=== PATIENT | female | born 1950 | race Caucasian/White ===

== ENCOUNTER 2017-11-04 16:16 | Emergency (ER) | payer OTHER, MEDICARE ==
[~2017-11-04] VITALS: Ht 167.6 cm; Wt 77.1 kg
[2017-11-04 16:25] VITALS: BP_SYST 145
[2017-11-04] MEDS ORDERED: KETOROLAC TROMETHAMINE 60 MG/2 ML VIAL IM ONE (17:30)
[2017-11-04 18:35] VITALS: BP_SYST 145
== END 2017-11-04 18:35 | disposition home or self-care (01) ==
LOC: SED 16:16
DX: M25.562 Pain in left knee (principal); J45.909 Unspecified asthma, uncomplicated; I10 Essential (primary) hypertension; Z90.89 Acquired absence of other organs; Z90.710 Acquired absence of both cervix and uterus; W19.XXXA Unspecified fall, initial encounter; Y93.89 Activity, other specified; Y92.89 Other specified places as the place of occurrence of the external cause; Y99.8 Other external cause status
CPT/HCPCS: 29505; 73564; 96372; 99284; J1885

== ENCOUNTER 2018-07-05 07:40 | Day surgery (SDC) | payer OTHER, MEDICARE ==
[~2018-07-05] VITALS: Ht 167.6 cm; Wt 77.1 kg
[2018-07-05] MEDS ORDERED: SIMETHICONE 40 MG/0.6 ML ML ONE (08:20)
[2018-07-05] MEDS ORDERED: MIDAZOLAM HCL 5 MG/5 ML VIAL ONE (08:21)
[2018-07-05] MEDS: MIDAZOLAM HCL 5 MG/5 ML VIAL ONE ×5 (10:13→10:29)
[2018-07-05] MEDS: MEPERIDINE HCL/PF 100 MG/ML AMP ONE ×2 (10:13→10:17)
[2018-07-05 14:17] VITALS: BP_SYST 129
== END 2018-07-05 11:55 | disposition home or self-care (01) ==
LOC: SDS 07:40
PROVIDERS: ATTEND Internal Medicine Gastroenterology
DX: D12.4 Benign neoplasm of descending colon (principal); K57.30 Diverticulosis of large intestine without perforation or abscess without bleeding; K64.8 Other hemorrhoids; J45.909 Unspecified asthma, uncomplicated; E78.5 Hyperlipidemia, unspecified; I10 Essential (primary) hypertension; K21.9 Gastro-esophageal reflux disease without esophagitis; Z86.010 Personal history of colon polyps; Z79.899 Other long term (current) drug therapy
CPT/HCPCS: 45380; 88305; J2175; J2250

== ENCOUNTER 2019-11-03 12:32 | Emergency (ER) | payer OTHER, MEDICARE ==
[~2019-11-03] VITALS: Ht 167.6 cm; Wt 78.5 kg
[2019-11-03 12:40] VITALS: BP_SYST 143
[2019-11-03] MEDS ORDERED: NACL 0.9% 1,000 ML IV ONE (13:05)
[2019-11-03] MEDS ORDERED: FAMOTIDINE PF 20 MG/2 ML VIAL IVP ONE (13:15)
[2019-11-03] MEDS ORDERED: methylPREDNISolone SOD SUCC/PF 62.5 MG/ML VIAL IVP ONE (13:15)
[2019-11-03] MEDS ORDERED: ACETAMINOPHEN 500 MG TABLET PO ONE (13:15)
[2019-11-03] MEDS ORDERED: DIPHENHYDRAMINE INJ 50 MG/ML VIAL IVP ONE (13:15)
[2019-11-03] MEDS ORDERED: LOSA25TA18 PO (13:47)
[2019-11-03 13:56] LABS: BASOPHILS % (AUTO) 0.7 % (0.0-2.0); EOSINOPHILS # (AUTO) 0.1 K/uL (0.0-0.4); EOSINOPHILS % (AUTO) 1.5 % (0.0-4.0); HEMATOCRIT 44.9 % (36-48); HEMOGLOBIN 15.2 g/dL (12.0-16.0); LYMPHOCYTES # (AUTO) 1.9 K/uL (1.0-5.5); LYMPHOCYTES % (AUTO) 25.7 % (20.5-51.5); MEAN CORPUSCULAR HEMOGLOBIN 32 pg (27-31); MEAN CORPUSCULAR HGB CONC 34 % (32-36); MEAN CORPUSCULAR VOLUME 93 fL (79.0-98.0); MONOCYTES # (AUTO) 0.4 K/uL (0.0-1.0); NEUTROPHILS # (AUTO) 4.9 K/uL (1.8-7.7); NEUTROPHILS % (AUTO) 67.1 % (40.0-70.0); PLATELET COUNT (AUTO) 298 K/uL (130-430); RED BLOOD CELL COUNT(AUTO) 4.81 MIL/uL (4.2-6.2); RED CELL DISTRIBUTION WIDTH 13.3 % (9.0-15.0); WHITE BLOOD COUNT (AUTO) 7.3 K/uL (4.8-10.8)
[2019-11-03 14:08] LABS: ANION GAP 10 (5-15); CALCIUM 9.4 mg/dL (8.4-11.0); CHLORIDE 103 mmol/L (98-107); CREATININE 0.66 mg/dL (0.55-1.30); GLUCOSE 104 mg/dL (70-99); POTASSIUM 3.8 mmol/L (3.5-5.1); SODIUM SERUM 138 mmol/L (136-145); UREA NITROGEN, BLOOD 11 mg/dL (8-21)
[2019-11-03 14:09] LABS: INR 0.9 (0.8-1.2); PROTHROMBIN TIME 9.4 SECS (9.5-12.5)
[2019-11-03 14:13] LABS: ALANINE AMINOTRANSFERASE 25 U/L (12-78); ALBUMIN 3.6 g/dL (3.4-4.8); AMYLASE 76 U/L (0-100); ASPARTATE AMINOTRANSFERASE 14 U/L (10-37); LIPASE 123 U/L (73-393); TOTAL BILIRUBIN 0.5 mg/dL (0.0-1.0)
[2019-11-03 14:23] LABS: BILIRUBIN,URINE NEGATIVE (NEGATIVE); BLOOD, URINE NEGATIVE (NEGATIVE); CLARITY/URINE CLEAR (CLEAR); COLOR,URINE YELLOW (YELLOW); GLUCOSE,URINE NEGATIVE (NEGATIVE); KETONES,URINE NEGATIVE (NEGATIVE); LEUKOCYTE ESTERASE ,URINE NEGATIVE (NEGATIVE); NITRITE, URINE NEGATIVE (NEGATIVE); PH,URINE 5.5 (5.0-8.0); PROTEIN URINE NEGATIVE (NEGATIVE); UROBILINOGEN,URINE 0.2 (0.2-1.0)
[2019-11-03 15:10] VITALS: BP_SYST 124
== END 2019-11-03 15:10 | disposition home or self-care (01) ==
LOC: SED 12:32
DX: T78.40XA Allergy, unspecified, initial encounter (principal); J45.909 Unspecified asthma, uncomplicated; I10 Essential (primary) hypertension; Z90.710 Acquired absence of both cervix and uterus; X58.XXXA Exposure to other specified factors, initial encounter
CPT/HCPCS: 36415; 71045; 80053; 81003; 82150; 83605; 83690; 85025; 85610; 85730; 86710; 87040; 96374; 96375; 99284; J1200; J2930; J3490; J7030

== ENCOUNTER 2019-11-04 08:05 | Emergency (ER) | payer OTHER, MEDICARE ==
[~2019-11-04] VITALS: Ht 167.6 cm; Wt 70.3 kg
[~2019-11-04 08:05] MED LIST: LOSA25TA18 PO
[2019-11-04 08:27] VITALS: BP_SYST 121
[2019-11-04] MEDS ORDERED: MAG HYDROX/AL HYDROX/SIMETH 30 ML, DICYCLOMINE HCL 20 MG, LIDOCAINE VISCOUS 2% 15ML (PO... PO ONE ×3 (09:15)
[2019-11-04 09:43] VITALS: BP_SYST 121
== END 2019-11-04 09:44 | disposition home or self-care (01) ==
LOC: SED 08:05
DX: L50.9 Urticaria, unspecified (principal); J45.909 Unspecified asthma, uncomplicated; I10 Essential (primary) hypertension
CPT/HCPCS: 93005; 99283; J2001

== ENCOUNTER 2021-08-09 00:56 | Emergency (ER) | payer OTHER, MEDICARE ==
[~2021-08-09] VITALS: Ht 165.1 cm; Wt 77.1 kg
[2021-08-09 01:10] VITALS: BP_SYST 158
--- NOTE | 2021-08-09 01:10 | NUR ---
Patient to ER bed 7 to gown for evaluation. Side rails up. Report given to URMILA DUARTE
[2021-08-09] MEDS ORDERED: PROCHLORPERAZINE EDISYLATE 10 MG/2 ML VIAL IVP ONE (01:30)
[2021-08-09] MEDS ORDERED: NACL 0.9% 1,000 ML IV ONE (01:30)
[2021-08-09 02:24] LABS: ANION GAP 12 (5-15); CALCIUM 10.5 mg/dL (8.4-11.0); CHLORIDE 104 mmol/L (98-107); CREATININE 0.82 mg/dL (0.55-1.30); GLUCOSE 149 mg/dL (70-99); POTASSIUM 4.4 mmol/L (3.5-5.1); SODIUM SERUM 142 mmol/L (136-145); UREA NITROGEN, BLOOD 11 mg/dL (8-21)
[2021-08-09 02:30] LABS: ALANINE AMINOTRANSFERASE 27 U/L (12-78); ALBUMIN 3.9 g/dL (3.4-4.8); ASPARTATE AMINOTRANSFERASE 19 U/L (10-37); LIPASE 63 U/L (73-393); TOTAL BILIRUBIN 0.5 mg/dL (0.0-1.0)
[2021-08-09 02:36] LABS: BASOPHILS # (AUTO) 0.1 K/uL (0.0-0.2); BASOPHILS % (AUTO) 0.6 % (0.0-2.0); EOSINOPHILS # (AUTO) 0.1 K/uL (0.0-0.4); EOSINOPHILS % (AUTO) 0.6 % (0.0-4.0); HEMATOCRIT 42.5 % (36-48); HEMOGLOBIN 14.4 g/dL (12.0-16.0); LYMPHOCYTES # (AUTO) 1.6 K/uL (1.0-5.5); LYMPHOCYTES % (AUTO) 14.6 % (20.5-51.5); MEAN CORPUSCULAR HEMOGLOBIN 31 pg (27-31); MEAN CORPUSCULAR HGB CONC 34 % (32-36); MEAN CORPUSCULAR VOLUME 92 fL (79.0-98.0); MONOCYTES # (AUTO) 0.4 K/uL (0.0-1.0); MONOCYTES % (AUTO) 3.7 % (1.7-9.3); NEUTROPHILS # (AUTO) 8.8 K/uL (1.8-7.7); NEUTROPHILS % (AUTO) 80.5 % (40.0-70.0); PLATELET COUNT (AUTO) 243 K/uL (130-430); RED BLOOD CELL COUNT(AUTO) 4.63 MIL/uL (4.2-6.2); RED CELL DISTRIBUTION WIDTH 13.5 % (9.0-15.0); WHITE BLOOD COUNT (AUTO) 10.9 K/uL (4.8-10.8)
--- NOTE | 2021-08-09 03:30 | NUR ---
# 20 gauge angiocath placed to LFA. Use of asceptic technique. Opsite placed over site. Blood return noted. Blood for lab drawn from site. Flushed with 10 cc of normal saline. No evidence of infiltration noted. Patient tolerated well.
--- NOTE | 2021-08-09 04:21 | NUR ---
Pt went to and from restroom, urine sample provided, sent to lab
[2021-08-09 04:32] LABS: BILIRUBIN,URINE NEGATIVE (NEGATIVE); BLOOD, URINE NEGATIVE (NEGATIVE); CLARITY/URINE CLEAR (CLEAR); COLOR,URINE YELLOW (YELLOW); GLUCOSE,URINE NEGATIVE (NEGATIVE); KETONES,URINE NEGATIVE (NEGATIVE); LEUKOCYTE ESTERASE ,URINE NEGATIVE (NEGATIVE); NITRITE, URINE NEGATIVE (NEGATIVE); PH,URINE 7.5 (5.0-8.0); PROTEIN URINE NEGATIVE (NEGATIVE); UROBILINOGEN,URINE 0.2 (0.2-1.0)
[2021-08-09] MEDS ORDERED: MOM PO (05:52)
[2021-08-09] MEDS ORDERED: ONDA-8 TL (05:52)
[2021-08-09] MEDS ORDERED: AMOX-426 PO (05:52)
--- NOTE | 2021-08-09 06:00 | NUR ---
Patient given written and verbal discharge instructions and verbalizes understanding. ER MD discussed with patient the results and treatment provided. Patient in stable condition. ID arm band removed. IV catheter removed intact and dressing applied, no active bleeding. Rx of Augmentin, Magnesium Hydroxide, and Zofran given. Patient educated on pain management and to follow up with PMD. Opportunity for questions provided and answered. Medication side effect fact sheet provided.
[2021-08-09 06:06] VITALS: BP_SYST 158
== END 2021-08-09 06:06 | disposition home or self-care (01) ==
LOC: SED 00:56
DX: K56.7 Ileus, unspecified (principal); I10 Essential (primary) hypertension; J45.909 Unspecified asthma, uncomplicated; Z79.899 Other long term (current) drug therapy
CPT/HCPCS: 36415; 74021; 74177; 76376; 80053; 81003; 83690; 85025; 96361; 96374; 99285; J0780; J7030; Q9967

== ENCOUNTER 2023-08-01 11:40 | Emergency (ER) | payer OTHER, MEDICARE ==
[~2023-08-01] VITALS: Ht 167.6 cm; Wt 68.0 kg
[~2023-08-01 11:40] MED LIST changes: +AMOX-426 PO; +MOM PO; +ONDA-8 TL
[2023-08-01 11:58] VITALS: BP_SYST 125; PULSE 68; RESP 16; TEMP 97.4; O2SAT 99
[2023-08-01] MEDS ORDERED: KETOROLAC TROMETHAMINE 30 MG VIAL IM ONE (12:45)
[2023-08-01] MEDS ORDERED: NAPR-688 PO (13:57)
[2023-08-01 14:15] VITALS: BP_SYST 131; PULSE 79; RESP 18; TEMP 97.7; O2SAT 100
== END 2023-08-01 14:16 | disposition home or self-care (01) ==
LOC: SED 11:40
DX: M25.561 Pain in right knee (principal); J45.909 Unspecified asthma, uncomplicated; I10 Essential (primary) hypertension; Z79.899 Other long term (current) drug therapy
CPT/HCPCS: 99283; 73564; 96372; J1885